=== PATIENT | male | born 1960 | race Caucasian/White ===

== ENCOUNTER 2017-06-13 08:51 | Emergency (ER) | payer OTHER ==
[~2017-06-13] VITALS: Ht 175.3 cm; Wt 100.0 kg
[2017-06-13] MEDS ORDERED: MOTRIN800 MG PO (10:05)
[2017-06-13 11:14] VITALS: BP 123/86
== END 2017-06-13 11:20 | disposition home or self-care (01) ==
LOC: EME 08:51
DX: S83.91XA Sprain of unspecified site of right knee, initial encounter (principal); X58.XXXA Exposure to other specified factors, initial encounter; Y93.68 Activity, volleyball (beach) (court); M17.11 Unilateral primary osteoarthritis, right knee
CPT/HCPCS: 73564; 99281; 99284